=== PATIENT | male | born 1980 | race Caucasian/White ===

== ENCOUNTER 2016-10-30 18:46 | Emergency (ER) | payer MEDICAID, OTHER ==
--- NOTE | 2016-10-30 19:39 | RAD ---
INDICATION: Intracranial injury. COMPARISON: None TECHNIQUE: Noncontrast axial source images were acquired from the skull base to the vertex. FINDINGS: Ventricles/sulci: The ventricles and cisterns are normal in size and configuration for age. Brain parenchyma: There is no focal parenchymal finding, evidence of intracranial mass, or intracranial mass effect. Intracranial hemorrhage:None. Extra-axial spaces: There are no abnormal extra axial fluid collections or evidence of extra-axial mass. Calvarium: There is no calvarial fracture or other calvarial abnormality. Scalp: There is no evidence of scalp or extracalvarial soft tissue abnormality. Paranasal sinuses/mastoid: The paranasal sinuses and mastoid air cells are clear. Other: None. IMPRESSION: NEGATIVE EXAMINATION
--- NOTE | 2016-10-30 19:43 | RAD ---
INDICATION: Fall. Pain. COMPARISON: CT cervical spine 09/22/2016 TECHNIQUE: Noncontrast axial source images was performed from the skull base to the thoracic inlet. Coronal and and sagittal reformatted images were generated. FINDINGS: Vertebrae: There is no fracture or acute focal bony lesion. There are no significant osteoarthritic changes. Alignment: The craniocervical junction appears normal. There is cervical spine straightening with reversal normal cervical lordosis, unchanged. Central Canal: There are no significant CT abnormalities of the central canal or foramina. MR imaging is a more sensitive method to evaluate the canal and foramina. Intervertebral disc spaces: The disc spaces are maintained. Brain: The visualized brain appears unremarkable. Soft tissues: The visualized soft tissue elements of the neck are unremarkable. The prevertebral soft tissues appear normal. The lung apices are clear. Other: There is a small right mastoid air cell effusion, unchanged. IMPRESSION: CERVICAL SPINE STRAIGHTENING. NO ACUTE OSSEOUS INJURY.
[2016-10-30] MEDS ORDERED: Ketorolac INJ* 60 MG/2 ML VIAL IM ONE (20:13)
--- NOTE | 2016-10-30 20:56 | ED ---
Minesh King Erika, scribed for Lee Milton MD on 10/30/16 at 1915 . Head Injury - HPI Summary HPI Summary: Patient is a 36-year-old male presenting to the ED with a CC of headache s/p head injury around 18:00 today. Pt reports that he was walking his dog when he slipped on ice, and hit his right occiput on a rail, and also hit his right posterior shoulder and the right side of his back. He now notes a throbbing headache, dizziness as if the room is spinning, fatigue, photophobia, and nausea. He denies vomiting. PMHx diabetes, well-controlled epilepsy, hyperlipidemia, Marfan's syndrome, bipolar disorder, PTSD, schizophrenia. PSHx bilateral foot and ankle surgery, deviated septum. Pt denies using drugs, alcohol, or tobacco. - History Of Current Complaint Chief Complaint: EDHeadInjury Stated Complaint: FALL/HEAD INJURY Time Seen by Provider: 10/30/16 18:57 Hx Obtained From: Patient, Family/Plow Holder - Mechanism Of Injury: Fall From A Standing Position Onset/Duration: Started Hours Ago - about 1 hour, Traumatic, Still Present Onset of Pain: Post Accident Severity Currently: Moderate Pain Intensity: 8 Pain Scale Used: 0-10 Numeric Location of Head Injury: Occipital - right Character: Throbbing Aggravating Factor(s): Other: - lights Associated Signs And Symptoms: Nausea, Headache - Allergies/Home Medications Allergies/Adverse Reactions: Allergies Allergy/AdvReac Type Severity Reaction Status Date / Time No Known Allergies Allergy Verified 09/22/16 14:22 PMH/Surg Hx/FS Hx/Imm Hx Endocrine/Hematology History: Reports: Hx Diabetes, Hx Thyroid Disease - HYPER Cardiovascular History: Reports: Hx Hypercholesterolemia, Hx Hypertension, Other Cardiovascular Problems/Disorders - 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 Sinus Surgery. Righ and Left foot surgery - reconstruction surgery. Tubes as a child Infectious Disease History: No Infectious Disease History: Denies: History Other Infectious Disease, Traveled Outside the [place] in Last 30 Days - Family History Known Family History: Positive: Hypertension Family History: no others in family with Marfan Syndrome - Social History Lives: With Family Alcohol Use: Occasionally Alcohol Amount: 1 shot or 2 Hx Substance Use: No Substance Use Type: Reports: None Hx Tobacco Use: No Smoking Status (MU): Never Smoked Tobacco Have You Smoked in the Last Year: No Review of Systems Positive: Fatigue Positive: Photophobia Positive: Nausea. Negative: Vomiting Neurological: Other - dizziness Positive: Headache All Other Systems Reviewed And Are Negative: Yes Physical Exam - Summary Physical Exam Summary: VITAL SIGNS: Reviewed. GENERAL: Patient is a well developed and nourished male who is lying comfortable in the stretcher. Patient is not in any acute respiratory distress. HEAD AND FACE: No signs of trauma. No ecchymosis, hematomas or skull depressions. No sinus tenderness. EYES: PERRLA, EOMI x 2, No injected conjunctiva, no nystagmus. No photophobia. EARS: Hearing grossly intact. Ear canals and tympanic membranes are within normal limits. MOUTH: Oropharynx within normal limits. NECK: Supple, trachea is midline, no adenopathy, no JVD, no carotid bruit, no c- spine tenderness, neck with full ROM. No meningeal signs, no Kernig's or brudzinskis signs. CHEST: Symmetric, no tenderness at palpation LUNGS: Clear to auscultation bilaterally. No wheezing or crackles. CVS: Regular rate and rhythm, S1 and S2 present, no murmurs or gallops appreciated. ABDOMEN: Soft, non-tender. No signs of distention. No rebound no guarding, and no masses palpated. Bowel sounds are normal. EXTREMITIES: FROM in all major joints, no edema, no cyanosis or clubbing. NEURO: Alert and oriented x 3. No acute neurological deficits. Speech is normal and follows commands. SKIN: Dry and warm Triage Information Reviewed: Yes Vital Signs On Initial Exam: Initial Vitals Temp Pulse Resp BP Pulse Ox 96.8 F 92 18 138/91 98 10/30/16 18:52 10/30/16 18:52 10/30/16 18:52 10/30/16 18:52 10/30/16 18:52 Vital Signs Reviewed: Yes Diagnostics - Vital Signs Vital Signs Temp Pulse Resp BP Pulse Ox 10/30/16 18:52 96.8 F 92 18 138/91 98 - Laboratory Lab Statement: Any lab studies that have been ordered have been reviewed, and results considered in the medical decision making process. - CT C Spine CT CT Interpretation Completed By: Radiologist - IMPRESSION: CERVICAL SPINE STRAIGHTENING. NO ACUTE OSSEOUS INJURY. Brain CT CT Interpretation Completed By: Radiologist - IMPRESSION: NEGATIVE EXAMINATION Re-Evaluation - Re-Evaluation First Eval Re-Evaluation Time: 20:53 Change: Improved Comment: Discussed imaging results and plan for discharge Head Injury Course/Dx Assessment/Plan: Patient is a 36-year-old male presenting to the ED with a CC of headache s/p head injury around 18:00 today. Pt reports that he was walking his dog when he slipped on ice, and hit his right occiput on a rail, and also hit his right posterior shoulder and the right side of his back. He now notes a throbbing headache, dizziness as if the room is spinning, fatigue, photophobia, and nausea. He denies vomiting. PMHx diabetes, well-controlled epilepsy, hyperlipidemia, Marfan's syndrome, bipolar disorder, PTSD, schizophrenia. Head CT impression: No acute osseous injury. C spine CT impression: Negative examination. I discussed all my findings and test results with the patient. Patient understands and agrees. Patient was instructed to return to the emergency room immediately if any of the symptoms return or worsens. Patient understands and agrees. Plan of care was discussed with the patient and patient understands and agrees with the plan of care. All questions were answered at patient satisfaction. There were no further complaints or concerns. Patient was instructed to follow up with primary care physician within 3 to 5 days. Patient is hemodynamically stable. Patient is alert and oriented x 3. No acute neurological deficits. - Diagnoses Differential Diagnosis/HQI/PQRI: Cerebral Contusion, Cervical Sprain, Contusion , Hematoma Provider Diagnoses: Headache, Scalp contusion Discharge - Discharge Plan Condition: Stable Disposition: HOME Patient Education Materials: Contusion in Adults (ED) Referrals: [facility] [place] [facility] [Outside] Additional Instructions: Please follow up with your PCP The documentation as recorded by the Minesh escobar Erika accurately reflects the service I personally performed and the decisions made by me, Lee Milton MD.
[2016-10-30 21:02] VITALS: BP 147/94
== END 2016-10-30 21:01 | disposition home or self-care (01) ==
LOC: ED 18:46
DX: S00.03XA Contusion of scalp, initial encounter (principal); R51 Headache; W01.0XXA Fall on same level from slipping, tripping and stumbling without subsequent striking against object, initial encounter; Y93.K1 Activity, walking an animal; Y92.9 Unspecified place or not applicable; E11.9 Type 2 diabetes mellitus without complications; G40.909 Epilepsy, unspecified, not intractable, without status epilepticus; E78.5 Hyperlipidemia, unspecified; Q87.40 Marfan syndrome, unspecified; F31.9 Bipolar disorder, unspecified; F43.10 Post-traumatic stress disorder, unspecified; F20.9 Schizophrenia, unspecified; E05.90 Thyrotoxicosis, unspecified without thyrotoxic crisis or storm; E78.00 Pure hypercholesterolemia, unspecified; I10 Essential (primary) hypertension
CPT/HCPCS: 70450; 72125; 99282; J1885

== ENCOUNTER 2016-11-17 17:25 | Emergency (ER) | payer MEDICAID ==
[2016-11-17] MEDS ORDERED: Amoxicillin/Clavulanate TAB* 875 MG PO ONE (18:37)
[2016-11-17 18:38] VITALS: BP 127/78
--- NOTE | 2016-11-17 18:40 | UC ---
Bite Injury/Animal HPI - HPI Summary HPI Summary: While breaking up dog fight, was bit in R hand by own dog. Pain, deformity of R thumb. Says he is "double-jointed because I have Marfan's" but that his thumb is not usually bent backwards. Tetanus is UTD, within last 5 yrs. - History of Current Complaint Stated Complaint: DOG BITE Time Seen by Provider: 11/17/16 18:19 Hx Obtained From: Patient Severity Currently: Mild Severity Initially: Moderate Onset/Duration: Sudden Onset Type of Bite: Animal Has Animal Been Immunized?: Unknown Character: Puncture Aggravating Factor(s): Nothing Alleviating Factor(s): Rest Associated Signs And Symptoms: Positive: Swelling Animal Available for Observation: Yes Animal Control Notified: Yes - Allergies/Home Medications Allergies/Adverse Reactions: Allergies Allergy/AdvReac Type Severity Reaction Status Date / Time No Known Allergies Allergy Verified 09/22/16 14:22 Home Medications: Home Medications Hydrocodone-Acetaminophen [Vicodin 5-300 mg] 11/17/16 [History] PMH/Surg Hx/FS Hx/Imm Hx Endocrine History Of: Reports: Diabetes, Thyroid Disease - HYPER Cardiovascular History Of: Reports: Cardiac Disorders - enlarged Aorta, Hypertension Psychological History Of: Reports: Bipolar Disorder, Schizophrenia - Surgical History Surgical History: Yes Surgery Procedure, Year, and Place: Nasal surgery - deviated septum. Sinus Surgery. Righ and Left foot surgery - reconstruction surgery. Tubes as a child - Family History Known Family History: Positive: Hypertension, Other - no others in family with Marfan Syndrome Family History: no others in family with Marfan Syndrome - Social History Occupation: Disabled Alcohol Use: Occasionally Alcohol Amount: 1 shot or 2 Substance Use Type: None Smoking Status (MU): Never Smoked Tobacco Have You Smoked in the Last Year: No - Immunization History Most Recent Influenza Vaccination: [id number] season Most Recent Tetanus Shot: UTD Hx Tetanus, Diphtheria Vaccination: Yes Vaccination Up to Date: No Review of Systems Constitutional: Negative Skin: Other - PWs Eyes: Negative ENT: Negative Respiratory: Negative Cardiovascular: Negative Gastrointestinal: Negative Genitourinary: Negative Motor: Negative Neurovascular: Negative Musculoskeletal: Arthralgia Neurological: Negative Psychological: Negative All Other Systems Reviewed And Are Negative: Yes Physical Exam Triage Information Reviewed: Yes Appearance: Well-Appearing, No Pain Distress, Well-Nourished Vital Signs Reviewed: Yes Eye Exam: Normal - pupils constricted, pt takes opiates for chronic pain ENT Exam: Normal ENT: Positive: Normal ENT inspection, Hearing grossly normal, Pharynx normal, TMs normal Dental Exam: Normal Dental: Negative: Dental Fracture @ Neck exam: Normal Respiratory Exam: Normal Respiratory: Positive: Chest non-tender, Lungs clear, Normal breath sounds, No respiratory distress, No accessory muscle use Cardiovascular Exam: Normal Cardiovascular: Positive: RRR Musculoskeletal: Positive: ROM Limited @ - R thumb, unwilling to move it. Hyperextended Neurological Exam: Normal Psychological Exam: Normal Skin Exam: Normal Bite Injury Course/Dx - Differential Dx/Diagnosis Provider Diagnoses: Dog bite R thumb. crush injury R thumb Discharge - Discharge Plan Condition: Stable Disposition: HOME Prescriptions: Amoxicillin/Clavulanate TAB* [Augmentin TAB 875*] 875 mg PO BID #9 tab Patient Education Materials: Animal Bite (ED), Crush Injury (ED) Referrals: Ned Delgado MD [Medical Doctor] - If Needed Additional Instructions: Keep the injury elevated as much as possible for the next 48 hours. You can wash the wounds whenever you wash your hands or shower/bathe. If you have sudden increase in redness or red streaks from the wounds please return right away. See the orthopedist if you are not using the hand normally within 2-3 days.
[2016-11-17] MEDS ORDERED: Ibuprofen TAB* 600 MG PO ONE (18:59)
--- NOTE | 2016-11-17 19:12 | RAD ---
INDICATION: Right thumb injury, dog bite. TECHNIQUE: 3 views of the right thumb were obtained. FINDINGS: The thumb is extended at the metacarpal phalangeal joint and flexed at the interphalangeal joint. There is soft tissue swelling present adjacent to the dorsal and lateral aspect of the metacarpal. No fracture or radiopaque foreign body is seen. Joint spaces appear maintained. IMPRESSION: NO EVIDENCE FOR FRACTURE OR RADIOPAQUE FOREIGN BODY.
== END 2016-11-17 19:10 | disposition home or self-care (01) ==
LOC: UCEAST 17:25
DX: S61.031A Puncture wound without foreign body of right thumb without damage to nail, initial encounter (principal); S67.01XA Crushing injury of right thumb, initial encounter; W54.0XXA Bitten by dog, initial encounter; Y93.9 Activity, unspecified; Y92.9 Unspecified place or not applicable
CPT/HCPCS: 99212; A9270-GY; G0463

== ENCOUNTER 2017-02-26 06:05 | Inpatient (IN) | payer MEDICAID ==
[2017-02-26] MEDS ORDERED: Aspirin Low Dose CHEW TAB* 81 MG ONE (06:54)
[2017-02-26] MEDS ORDERED: Aspirin EC Low Dose* 81 MG TAB.EC PO ONE (06:58)
[2017-02-26] MEDS ORDERED: Heparin DRIP 25,000 UNITS(*) 25,000 UNITS/500 ML BAG IV SCH ×2 (07:15→08:00)
[2017-02-26 07:58] LABS: Hematocrit 40 % (42-52); Hemoglobin 13.2 g/dl (14.0-18.0); Mean Corpuscular HGB Conc 33 g/dl (31-36); Mean Corpuscular Hemoglobin 29 pg (27-31); Mean Corpuscular Volume 86 fL (80-94); Mean Platelet Volume 7 um3 (7.4-10.4); Red Blood Count 4.62 10^6/ul (4.0-5.4); Red Cell Distribution Width 14 % (10.5-15); White Blood Count 9.3 10^3/ul (3.5-10.8)
[2017-02-26] MEDS ORDERED: Heparin VIAL(*) 5000 UNITS/ML VIAL (FIVE THOUSAND) IV SCH (08:00)
--- NOTE | 2017-02-26 08:05 | RAD ---
INDICATION: Chest pain. COMPARISON: There are no prior studies available for comparison. TECHNIQUE: A portable view of the chest was obtained. FINDINGS: Cardiac and mediastinal contours appear to be within normal limits. The lungs are clear. No pleural effusion is seen. IMPRESSION: NO EVIDENCE FOR ACUTE DISEASE.
[2017-02-26 08:24] LABS: Albumin 4.3 g/dL (3.2-5.2); BUN/Creatinine Ratio 25.4 (8-20); Calcium 8.9 mg/dL (8.6-10.3); EGFR African American 160.5 (>60); EGFR Non-African American 124.8 (>60); Globulin 2.7 g/dL (2-4); Potassium 4.3 mmol/L (3.5-5.0); Total Bilirubin 0.4 mg/dL (0.2-1.0)
[2017-02-26 09:02] LABS: Troponin I 11.64 ng/mL (<0.04)
--- NOTE | 2017-02-26 09:21 | ECHO ---
Patient: THERESA BARTHOLOMEW [facility] Rec#: [id number] : 1980 Date: 02/26/2017 Age: 36y Height: 190.5 cm / 75.0 in Weight: 93 kg / 205.0 lbs Sex: M BSA: 2.22 Room#: ICU 9 Admit Date#: 02/26/2017 Type: Inpatient Referring: Julius Mancilla MD Reading: Julius Mancilla MD Lawyers: Janny Peraza RN RDCS CC: Marshall Razo MD Transthoracic Echocardiogram Indication: STEMI BP: 125/84 HR: 62 Rhythm: NSR with PVCs Findings History: Marfan's syndrome with dilated ascending aorta Technical Comments: The study is technically limited due to patient body habitus. Completed at 0855. Left Ventricle: The left ventricular chamber size is mildly dilated. Mild to moderate concentric left ventricular hypertrophy is observed. There is a focal wall motion abnormality present.There is severe hypo to akinesis of the inferior , mid to low septal,and inferoapical region. There is moderately decreased left ventricular systolic function. The estimated ejection fraction is 30-35%. Visually estimated LVEF is approximately 35%. There is an E to A reversal in the mitral valve flow pattern suggestive of diastolic dysfunction. Left Atrium: The left atrial chamber size is normal. Right Ventricle: The right ventricular cavity size is normal. The right ventricular global systolic function is low normal. Right Atrium: The right atrial cavity size is normal. Aortic Valve: The aortic valve is trileaflet. There is mild aortic regurgitation. There is no evidence of aortic stenosis. Mitral Valve: The mitral valve leaflets are mildly thickened. There is trace to mild mitral regurgitation. There is no evidence of mitral stenosis. Tricuspid Valve: The tricuspid valve leaflets are normal. There is trace to mild tricuspid regurgitation. There is evidence of mild pulmonary hypertension. Pulmonic Valve: The pulmonic valve appears normal. There is a trace pulmonic regurgitation. There is no pulmonic stenosis. Pericardium: There is no significant pericardial effusion. A pericardial fat pad is visualized. Aorta: There is moderate dilatation of the ascending aorta.Single plane measurement is 4.6cm There is no dilatation of the aortic arch. There is moderate dilatation of the aortic root.Single plane measurement is 4.8-4.9cm Pulmonary Artery: The main pulmonary artery appears normal. Venous: The venous system is not well visualized. The inferior vena cava is not visualized. Conclusions Mild to moderate concentric left ventricular hypertrophy is observed. There is a focal wall motion abnormality present.There is severe hypo to akinesis of the inferior , mid to low septal,and inferoapical region. There is moderately decreased left ventricular systolic function. The estimated ejection fraction is 30-35%. Visually estimated LVEF is approximately 35%. There is mild aortic regurgitation. There is trace to mild mitral regurgitation. There is trace to mild tricuspid regurgitation. There is evidence of mild pulmonary hypertension. There is a trace pulmonic regurgitation. There is moderate dilatation of the ascending aorta.Single plane measurement is 4.6cm There is moderate dilatation of the aortic root.Single plane measurement is 4.8-4.9cm No reports of prior studies are available for comparison. Measurements Name Value Normal Range RVDdMajor (2D) 3.8 cm (2.2 - 4.4) RAd ISD 4CH 4.2 cm (3.4 - 4.9) RA (A4C)W 3.7 cm (2.9 - 4.6) IVSd (2D) 1.3 cm (0.6 - 1) LVPWd (2D) 1.1 cm (0.6 - 1) LVIDd (2D) 5.6 cm (3.6 - 5.4) LVIDs (2D) 4.5 cm - LV FS (2D) 19 % (25 - 45) Aortic Annulus 2.6 cm (1.4 - 2.6) Ao root diameter (2D) 4.5 cm (2.1 - 3.5) Ascending Ao 4.6 cm (2.1 - 3.4) Aortic arch 2.5 cm (1.8 - 3.4) LA dimension (AP) 2D 3.6 cm (2.3 - 3.8) LAd ISD 4CH 4.8 cm (2.9 - 5.3) LA ISD 4CH W 3.9 cm (2.5 - 4.5) Name Value Normal Range LA ESV SP 4CH (A/L) 36 ml - LA ESV SP 2CH (A/L) 42 ml - LA ESV BP (A/L) 42 ml - LA ESV BP (A/L) index 18.8 ml/m2 - LA ESV SP 4CH (MOD) 33 ml - LA ESV SP 2CH (MOD) 40 ml - Name Value Normal Range MV E-wave Vmax 0.57 m/sec - MV deceleration time 224 msec - MV A-wave Vmax 0.74 m/sec - MV E:A ratio 0.77 ratio - LV septal e' Vmax 0.06 m/sec - LV lateral e' Vmax 0.07 m/sec - LV E:e' septal ratio 9.5 ratio - LV E:e' lateral ratio 8.1 ratio - Name Value Normal Range AV Vmax 1 m/sec - AV VTI 25.7 cm - AV peak gradient 4 mmHg - AV mean gradient 2 mmHg - LVOT Vmax 0.8 m/sec - LVOT VTI 19 cm - LVOT peak gradient 4 mmHg - LVOT mean gradient 2 mmHg - MARQUES Vmax 0.9 m/sec - Name Value Normal Range TR Vmax 2.7 m/sec - TR peak gradient 29 mmHg - RAP 8 mmHg - RVSP 37 mmHg - Name Value Normal Range PV Vmax 0.79 m/sec -
[2017-02-26] MEDS ORDERED: Heparin VIAL(*) 5000 UNITS/ML VIAL (FIVE THOUSAND) ONE (09:50)
[2017-02-26] MEDS ORDERED: Metoprolol Succinate XL TAB* 25 MG PO ONE ×2 (10:12→11:20)
[2017-02-26] MEDS ORDERED: Dextrose 50% Syringe 50 ML* 25 GM/50 ML SYRINGE IV PUSH PRN (10:13)
[2017-02-26] MEDS ORDERED: NS 0.9% 1000 ML* 1,000 ML IV SCH (10:15)
[2017-02-26] MEDS ORDERED: Amiodarone 360 MG IVPREMIX* 360 MG/200 ML BAG IV ONE (11:55)
[2017-02-26] MEDS ORDERED: Amiodarone 150 MG IVPREMIX* 150 MG/100 ML BAG IV ONE (11:55)
[2017-02-26] MEDS ORDERED: Insulin LISPRO* 1 UNITS UNIT SUBCUT SCH (12:00)
[2017-02-26] MEDS ORDERED: Amiodarone DRIP* 1.8 MG/ML 200 ML IV ONE (12:30)
[2017-02-26 13:12] VITALS: BP 118/67
[2017-02-26 14:01] LABS: Magnesium 1.7 mg/dL (1.9-2.7)
--- NOTE | 2017-02-26 14:01 | HP ---
ADMISSION/TRANSFER NOTE: DATE OF ADMISSION/DICTATION: 02/26/17 CHIEF COMPLAINT: The patient with chest discomfort and acute ST segment elevation inferior wall myocardial infarction. HISTORY OF PRESENT ILLNESS: The patient is a 36-year-old white male with no prior known history of coronary artery disease. He has a history dating back when he was 15 years old of having a dilated ascending aorta and he was told he has Marfan's syndrome. Last night, he developed the onset of chest discomfort, initially sharp in nature at the left side of the chest radiating up to his shoulder followed by numbness in the left arm. He had coughing and he was nauseous and vomited at least once. The symptoms persisted and he eventually sought medical attention by driving to the [facility] Emergency Room. In the emergency room, an electrocardiogram documented the presence of an ST segment elevation inferior wall myocardial infarction. Because of his history of the dilated ascending aorta, a CTA was performed there of the chest to look for dissection. This was reported as negative for any type of thoracic aortic dissection. With that, the emergency room physician had discussed the case with Dr. Serna, talent rep at [facility]. According to the emergency room doctor, he instructed the doctor to give the patient TNK as a thrombolytic agent and have the patient sent to [facility]. The patient received a TNK and a discussion was made about going to [facility]. At that point in time, the family and the patient refused to go to [facility] and said they would go nowhere but [facility]. It was at that point that I was then called. That was at 4:34 a.m. this morning. I discussed the case with the emergency room physician and accepted the patient to be transferred over. The patient had not received any heparin and I instructed them to start heparin on the patient and also give clopidogrel 300 mg loading dose. The patient was subsequently transferred over to the emergency room. When he arrived, I then realized that the patient had not gotten aspirin over there as well and as such, we gave him a full dose aspirin. The patient's symptoms were significantly diminished and he appeared in no acute distress and a repeat EKG documented no significant ST segment elevation inferiorly rather T-wave inversion and Q-wave development inferiorly with T- wave inversion in the anterior leads. As such, he was initially admitted up to the intensive care unit. We looked at the CD of the CT of the chest which reportedly documented a 5.3 x 4.8 mm distended aortic root. Unfortunately, the CD that was sent with the patient was of a different patient in the emergency room and not even a CTA. We called [facility] and asked them to resend another one so that we could see the documentation of this in addition to the report. The patient was stable hemodynamically and admitted initially to the intensive care unit. Heparin therapy was continued with a drip placed at 1000 units per hour and a CT was checked and found to be subtherapeutic for guideline range of 50 to 70 at 47 and as such, he was bolused with a 1000 mg and the drip was increased to 1200 units an hour. The patient received in the intensive care unit 12.5 mg of metoprolol succinate. The patient normally takes 25 mg daily. An echocardiogram was subsequently performed showing severe inferior septal and inferior apical hypo to akinesis with an EF approximately 35%. There was trace to mild mitral regurgitation. There was mild aortic regurgitation. The aortic root was measured at 4.8 cm in the single plane parasternal long axis view. The ascending aorta was measured at 4.6 cm in this view. The right ventricle appeared to be functioning normally with no severe dysfunction. A discussion was then had with first Dr. Barber regarding the ascending aortic dilatation and at this point, he felt that if anything, treatment of the coronary artery disease first should be proceeded with. I then discussed the case with the talent rep at [facility] given the fact that the patient had the significant dilatation of the aortic root with a reported Marfan's etiology of this and the potential need for stabilizing the patient over the next several days with potential combined aortic root and coronary artery disease surgery versus intervening with stent placement and trying to buy as much time as possible even though current criteria suggests that the aortic root should be replaced. With these decisions to made, the decision was made to transfer the patient so that the surgical program could also meet with the patient as well and go over all of these potential options. As such, the patient is now being transferred to [facility], Dr. Haddad, interventional cardiology service. PAST MEDICAL HISTORY: Significant for hypertension, type 2 diabetes, Marfan's disease, hyperlipidemia, as well as a psychiatric history. The patient also has tremors. 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 Cardiac risk factors include hypertension, hyperlipidemia, Type II DM, family history of brother with early onset CAD, denies smokling. ALLERGIES: No known drug allergies. FAMILY HISTORY: Brother who apparently had multiple heart attacks in his 40s, type 2 diabetes, but a negative history of smoking. REVIEW OF SYSTEMS: No history of bleeding or TIAs or strokes. No history of renal dysfunction, no history of contrast allergy that he is aware of. PHYSICAL EXAMINATION VITAL SIGNS: When we saw him in the emergency room, blood pressure 125/89, pulse 70s, O2 saturation 98% on 3 L. HEENT: Conjunctivae pink. Sclerae clear. NECK: Supple. No increased JVP. Carotid with good upstroke and volume without bruits. LUNGS: Revealed no accessory muscle usage. There is good excursion. Lungs relatively clear to A and P. HEART: Revealed no visible heaves. No palpable heaves or thrills. Normal S1 and S2. No S3 or S4 gallop. There is a short systolic murmur. I do not appreciate a significant diastolic murmur. ABDOMEN: Soft, nontender without organomegaly. EXTREMITIES: Without clubbing, cyanosis or dmitry pitting edema. The femoral pulses present bilaterally. There is no decreased pulse in the femoral or distal pulses. There is no delay compared to the wrist pulse bilaterally. DIAGNOSTIC STUDIES/LAB DATA: Repeat electrocardiogram dated 02/26/17, time 6: 08 a.m. at [facility] showed no significant ST elevation in II, III, aVF with T-wave inversion and noticeably his Q-wave in III and also in aVF, T- wave inversion noted biphasic in V2 and inverted in V3, V4 and V5 and V6. R- waves are still present in those leads. There is poor R-wave in aVF and small R wave in 3 and small R-wave in lead 2. Laboratory results that came back since admission including hemoglobin and hematocrit of 13.2 and 40, platelet count was 293,000. The BUN and creatinine were 18 and 0.7, sodium 129, potassium 4.3, chloride 96, bicarb 24. Laboratory results from [facility] revealed a BUN and creatinine of 24 and 0.9. Sodium 134, potassium of 3.9, chloride 97, bicarb 26. The initial CK was 112, the troponin was less than 0.015. New laboratory results at [facility] included SGOT of 94, SGPT of 55 , total CPK of 953 and an MB 169, a troponin of 11.6. These values were drawn some 5 hours after the initial samples from [facility]. OVERALL ASSESSMENT: Lavelle presents now with an interrupted ST elevation inferior wall myocardial infarction by thrombolytic therapy, currently on heparin and had received a loading dose of clopidogrel 300 mg. He has gotten beta-karen therapy with a total of 25 mg of metoprolol succinate which he is on chronically. He did get full dose aspirin today. At this point in time, we will transfer him to [facility] so that a decision could be made between the concept of cathing and performing either stenting and electively trying to buy him as much time as possible even though theoretically he meets guideline criteria for intervening in his thoracic aorta and aortic root versus cardiac catheterization and trying to stabilize him over the next 4 or 5 days to allow clopidogrel to wear off and if LV function improves, significantly consider doing combined bypass and ascending aortic replacement. As mentioned earlier, discussions were made with both Dr. Haddad, the interventionalist who is the accepting physician and with Dr. Raffy Barber who is aware of the case. CC - Dr. Marshall Razo MD* [id number]/[facility] #: [id number] Addendum - of note prior to discharge he developed ventricular ectopic activity , with as much as a 14 beat run of V-tach for which amiodarone was instituted. A repeat EKG showed no significant change from prior one with Q waves inferiorly and T wave inversions inferiorly and anteriorly. He had no significant symptoms. [facility]
--- NOTE | 2017-02-26 18:41 | CONS ---
CONSULTATION REPORT: DATE OF CONSULT: 02/26/17 PHYSICIAN REQUESTING CONSULT: Dr. Mancilla from Cardiology. PRIMARY CARE PHYSICIAN: Dr. Marshall Razo CHIEF COMPLAINT: Chest pain. HISTORY OF PRESENT ILLNESS: Lavelle Casey is a 36-year-old male with history of learning disability, Marfan syndrome as well as diabetes, and schizophrenia, who presented originally to [facility] complaining of chest pain. The chest pain was substernal occurred at 9 p.m. and had lasted most of the night. The patient initially was treated with TNK by the physician in the [facility] ED and subsequently transferred to our facility for further intervention. The patient was diagnosed with inferior wall ST elevation MA. The patient is right now being evaluated in room 9 in the ICU. The patient has a history of diabetes, schizophrenia and seizure disorder and for those above- mentioned conditions, Dr. Mancilla asked the Medicine to consult. PAST MEDICAL HISTORY: 1. Diabetes type 2. 2. History of seizure disorder. 3. History of Marfan syndrome. 4. Schizophrenia. 5. History of PTSD. 6. History of bipolar disorder. 7. History of thoracic aortic aneurysm. Documented stay with measurements of 5.3 x 4.8 cm of the thoracic aorta. 8. History of learning disability. 9. History of left ear tympanic membrane perforation and hearing deficit on the left ear. 10. Please note that the patient has bilateral foot surgeries and ORIF. MEDICATIONS: Include: 1. Lamictal 25 mg b.i.d. 2. Gemfibrozil 600 mg b.i.d. 3. Toprol XL 25 mg daily. 4. Abilify injections every month at 400 mg. 5. Meloxicam 7.5 mg p.r.n. 6. Mirtazapine 45 mg q.h.s. 7. Metformin 500 mg b.i.d. ALLERGIES: No known drug allergies. FAMILY HISTORY: Positive for father who at the age of 50 secondary to MA. The patient's mother with Graves disease. SOCIAL HISTORY: The patient is on disability. He occasionally has a "shot of vodka." The patient denies any drug or tobacco use. He lives with his significant other, Bisi Sutton, phone number [phone]. Another surrogate is his mother, Gina Painter, phone number [phone]. REVIEW OF SYSTEMS: Please see history of present illness. The patient stated that his chest pain just right now is beginning to resolve. He never had shortness of breath. He localizes the chest pain in the substernal area and describes it as pressure. All the remaining 14 systems were reviewed with the patient, and otherwise negative. PHYSICAL EXAM: Blood pressure of 117/78, heart rate of 72 and regular. Respiratory rate of 18, oxygen saturation 99% on room air, temperature of 97.7. General: The patient is a very pleasant 36-year-old male who is in no acute distress. Alert, awake, and oriented x3. HEENT: Head is atraumatic and normocephalic. Eyes: Pupils equal and reactive to light and accommodation. Oropharynx clear. Mucosa moist. Neck: Supple. No JVD, no bruits bilaterally. Cardiovascular: Regular rate and rhythm. No murmurs. Respiratory : Clear to auscultation bilaterally. Abdomen: Soft and nontender. Bowel sounds are present in all 4 quadrants. Extremities: There is no edema. +2 pulses bilaterally. No clubbing or cyanosis. Neuro evaluation: Speech is clear. Cranial nerves II through XII grossly intact. Motor strength is 5/5 bilaterally. Psychiatric Evaluation: Oriented x3 with no evidence of anxiety or depression. Rather poor historian. DIAGNOSTIC STUDIES/LAB DATA: Shows sodium of 129, potassium of 4.3, chloride of 96, carbon dioxide of 24, BUN of 18, creatinine of 0.7. Liver function tests showed AST of 94, ALT of 55, alkaline phosphatase of 40. Total CPK of 953. CK-MB of 169. Troponin of 11.6. White blood cell count of 9.3, hemoglobin of 13.2, hematocrit of 40 and platelets of 293. The patient's most recent echocardiogram obtained at 11:56 a.m., showed deep negative T wave in leads II, III and aVF, as well as deep negative T waves in leads V1 to V6. Previously described ST elevations in lead II, III and aVF resolved. ASSESSMENT AND PLAN: A 36-year-old male who has ST elevation myocardial infarction, was treated with TNK and transferred to our hospital for further interventions. The patient was noted to have 5.3 x 4.[address] on [address] angiogram obtained at [facility]. At this point, as per Dr. Mancilla, the patient is treated with heparin drip. The patient also received a dose of Plavix and aspirin. In regards to the patient's history of schizophrenia, the patient's antidepressants and antipsychotics are going to be continued as previously taken. In regards to the patient's diabetes, the patient is going to be placed on insulin sliding scale and his metformin is going to be held. For his hypertension, Dr. Mancilla is ordering right now one dose of beta- karen. We will ask Dr. Mancilla to manage it further. In regards to hyperlipidemia, gemfibrozil is going to be continued as previously taken. For DVT prophylaxis, the patient is currently on heparin drip. Thank you very much for allowing me to see your patient in consultation. Medicine will follow on a daily basis. TIME SPENT: Approximately 68 minutes was spent on the patient's consult. CC: Dr. Mancilla; Dr. Marshall Razo * [id number]/[facility] #: [id number] MTDD
[2017-02-26] MEDS ORDERED: Mirtazapine TAB* 15 MG PO SCH (21:00)
[2017-02-26] MEDS ORDERED: Gemfibrozil TAB* 600 MG PO SCH (21:00)
[2017-02-26] MEDS ORDERED: lamoTRIgine TAB(*) 25 MG PO SCH (21:00)
== END 2017-02-26 13:35 | disposition short-term general hospital (02) | DRG 190 ==
LOC: ED 06:05 → ICU 06:36
PROVIDERS: ADMIT Internal Medicine Cardiovascular Disease; ATTEND Internal Medicine Cardiovascular Disease
DX: I21.19 ST elevation (STEMI) myocardial infarction involving other coronary artery of inferior wall (principal); I47.2 Ventricular tachycardia; Q87.410 Marfan syndrome with aortic dilation; E11.9 Type 2 diabetes mellitus without complications; F20.9 Schizophrenia, unspecified; I10 Essential (primary) hypertension; F81.9 Developmental disorder of scholastic skills, unspecified; G40.909 Epilepsy, unspecified, not intractable, without status epilepticus; Z79.84 Long term (current) use of oral hypoglycemic drugs; Z82.49 Family history of ischemic heart disease and other diseases of the circulatory system; Z83.3 Family history of diabetes mellitus; Z79.899 Other long term (current) drug therapy
CPT/HCPCS: 36415; 71010; 80053; 82550; 82553; 83735; 84484; 85025; 85730; 87641; 93005; 93306; A9270-GY; J0282; J1644

== ENCOUNTER 2017-05-05 10:58 | Emergency (ER) | payer OTHER ==
[2017-05-05 11:42] LABS: Hematocrit 42 % (42-52); Hemoglobin 13.6 g/dl (14.0-18.0); Mean Corpuscular HGB Conc 33 g/dl (31-36); Mean Corpuscular Hemoglobin 29 pg (27-31); Mean Corpuscular Volume 88 fL (80-94); Red Blood Count 4.78 10^6/ul (4.0-5.4); Red Cell Distribution Width 15 % (10.5-15)
[2017-05-05 11:44] LABS: Add Diff/Slide Review? Slide Review Added; Comments Flag Yes
[2017-05-05 11:48] LABS: ALT 46 U/L (7-52); Albumin 4.5 g/dL (3.2-5.2); Alkaline Phosphatase 52 U/L (34-104); BUN/Creatinine Ratio 22.4 (8-20); Blood Urea Nitrogen 15 mg/dL (6-24); CO2 Carbon Dioxide 20 mmol/L (22-32); Calcium 9.5 mg/dL (8.6-10.3); Chloride 101 mmol/L (101-111); Creatine Kinase 64 U/L (10-223); EGFR African American 171.7 (>60); EGFR Non-African American 133.5 (>60); Glucose 93 mg/dL (70-100); Sodium 130 mmol/L (133-145); Total Protein 7.5 g/dL (6.4-8.9)
[2017-05-05 11:51] LABS: Troponin I 0.01 ng/mL (<0.04)
--- NOTE | 2017-05-05 11:52 | RAD ---
INDICATION: Chest pain. COMPARISON: Comparison is made with a prior study from February 26, 2017. TECHNIQUE: Dual-energy PA and lateral views of the chest were obtained. FINDINGS: The patient appears to be status post coronary artery bypass surgery. The heart is within normal limits in size. The lungs are clear. No pleural effusion is present. IMPRESSION: POSTSURGICAL CHANGES, NO EVIDENCE FOR ACUTE FINDING.
[2017-05-05 12:20] LABS: TSH (Thyroid Stimulating Horm) 3.23 mcIU/mL (0.34-5.60)
[2017-05-05 12:49] LABS: White Blood Count 8.4 10^3/ul (3.5-10.8)
[2017-05-05 12:50] LABS: Mean Platelet Volume 8 um3 (7.4-10.4)
[2017-05-05 13:28] LABS: Anion Gap 9 mmol/L (2-11)
[2017-05-05] MEDS ORDERED: Iodixanol* (CONTRAST) 320 MG/ML 100 ML SDV IV ONE (13:48)
--- NOTE | 2017-05-05 14:42 | RAD ---
Indication: Shortness of breath chest pain. Contrast: Administered 82.0 ml of VISAPAQUE 320 mgi/ml CTA of the chest was performed after IV contrast administration. Coronal and sagittal reconstructed images were obtained. The pulmonary arterial tree is well opacified. There are no filling defects present to suggest pulmonary embolus. There is no mediastinal or hilar adenopathy noted. The heart demonstrates no evidence of pericardial effusion. The trachea and major bronchi appear patent. The lung epstein demonstrate no pleural fluid, nodules or masses. Some scarring is noted in the lingula. No alveolar consolidation is noted.. No alveolar consolidation is noted. Cardiomegaly is noted. The visualized abdominal organs are otherwise unremarkable. The aorta demonstrates no evidence of aortic dissection. IMPRESSION: No evidence of pulmonary embolus is noted. No evidence of aortic dissection or aneurysmal dilatation is present.
[2017-05-05 16:38] VITALS: BP 106/72
--- NOTE | 2017-05-05 20:13 | ED ---
Sarah King Edward, scribed for Lee Milton MD on 05/05/17 at 1115 . HPI Chest Pain - HPI Summary HPI Summary: 36 y/o male presents to ED c/o CP starting 2 hours ago. CP feels like "someone kicked him in the chest" rated at a 9.5/10 now. Associated sx: dizziness, numbness in arm, and SOB. The patient was relaxing while it started. No N/V, diaphoresis. PMHx Marfan's syndrome, DM, 2 LA, large aorta, HLD. SHx triple bypass surgery. - History of Current Complaint Chief Complaint: EDChestPainROMI Time Seen by Provider: 05/05/17 11:12 Hx Obtained From: Patient Timing: Lasting Hours - 2 hours Initial Severity: Severe Current Severity: Severe Pain Intensity: 9 Pain Scale Used: 0-10 Numeric Chest Pain Radiates To:: Arm - Numbness Character: Other: - "some one kicked me in the chest" Associated Signs and Symptoms: Positive: Chest Pain, Numbness - arm, Dizziness, Shortness of Breath. Negative: Diaphoresis, Nausea, Vomiting - Allergy/Home Medications Allergies/Adverse Reactions: Allergies Allergy/AdvReac Type Severity Reaction Status Date / Time No Known Allergies Allergy Verified 02/26/17 06:26 PMH/Surg Hx/FS Hx/Imm Hx Previously Healthy: No Endocrine/Hematology History: Reports: Hx Diabetes, Hx Thyroid Disease - HYPER, Other Endocrine/Hematological Disorders Cardiovascular History: Reports: Hx Hypercholesterolemia, Hx Hypertension, Other Cardiovascular Problems/Disorders - HYPERCHOLESTEROLEMIA/IDDM/MARFAN'S SYNDROME/ENLARGED AORTA Musculoskeletal History: Reports: Other Musculoskeletal History - Marfan's Syndrome Sensory History: Denies: Hx Contacts or Glasses, Hx Hearing Aid Opthamlomology History: Denies: Hx Contacts or Glasses Neurological History: Reports: Hx Seizures Psychiatric History: Reports: Hx Post Traumatic Stress Disorder, Hx Schizophrenia, Hx Bipolar Disorder - Surgical History Surgery Procedure, Year, and Place: Nasal surgery - deviated septum. Sinus Surgery. Righ and Left foot surgery - reconstruction surgery. Tubes as a child Infectious Disease History: Denies: History Other Infectious Disease, Traveled Outside the [place] in Last 30 Days - Family History Known Family History: Positive: Hypertension, Other - no others in family with Marfan Syndrome Family History: no others in family with Marfan Syndrome - Social History Alcohol Use: None Alcohol Amount: 1 shot or 2 Hx Substance Use: No Substance Use Type: Reports: None Hx Tobacco Use: No Smoking Status (MU): Never Smoked Tobacco Have You Smoked in the Last Year: No Review of Systems Constitutional: Negative Eyes: Negative ENT: Negative Positive: Chest Pain Positive: Shortness Of Breath Negative: Vomiting, Nausea Genitourinary: Negative Musculoskeletal: Negative Skin: Negative Neurological: Other - Dizziness Positive: Numbness - Arm Psychological: Normal All Other Systems Reviewed And Are Negative: Yes Physical Exam - Summary Physical Exam Summary: VITAL SIGNS:~Reviewed. GENERAL:~ Patient is a pale male who is lying comfortable in the stretcher.~ Patient is not in any acute respiratory distress. Pain is in no pain distress despite reporting 9.5/10 CP. HEAD AND FACE:~No signs of trauma.~ No ecchymosis, hematomas or skull depressions. No sinus tenderness. EYES:~PERRLA, EOMI x 2, No injected conjunctiva, no nystagmus. EARS:~Hearing grossly intact. Ear canals and tympanic membranes are within normal limits. MOUTH:~Oropharynx within normal limits. NECK:~Supple, trachea is midline, no adenopathy, no JVD, no carotid bruit, no c- spine tenderness, neck with full ROM. CHEST:~Symmetric, no tenderness at palpation. Well-healed surgical incision - clean, dry and intact. LUNGS:~Clear to auscultation bilaterally. No wheezing or crackles. CVS:~Regular rate and rhythm, S1 and S2 present, no gallops appreciated. Positive ejection systolic murmur 2/6. ABDOMEN:~Soft, non-tender. No signs of distention. No rebound no guarding, and no masses palpated. Bowel sounds are normal. EXTREMITIES:~FROM in all major joints, no edema, no cyanosis or clubbing. NEURO:~Alert and oriented x 3. No acute neurological deficits. Speech is normal and follows commands. SKIN:~Dry and warm Triage Information Reviewed: Yes Vital Signs On Initial Exam: Initial Vitals Temp Pulse Resp BP Pulse Ox 97.6 F 77 22 107/71 97 05/05/17 11:00 05/05/17 11:00 05/05/17 11:00 05/05/17 11:00 05/05/17 11:00 Vital Signs Reviewed: Yes Diagnostics - Vital Signs Vital Signs Temp Pulse Resp BP Pulse Ox 05/05/17 11:00 97.6 F 77 22 107/71 97 - Laboratory Lab Results: Lab Results 05/05/17 05/05/17 05/05/17 Range/Units 11:24 11:24 11:24 WBC 8.4 (3.5-10.8) 10^3/ul RBC 4.78 (4.0-5.4) 10^6/ul Hgb 13.6 L (14.0-18.0) g/dl Hct 42 (42-52) % MCV 88 (80-94) fL MCH 29 (27-31) pg MCHC 33 (31-36) g/dl RDW 15 (10.5-15) % Plt Count 339 (150-450) 10^3/ul MPV 8 (7.4-10.4) um3 Neut % (Auto) 46.6 (38-83) % Lymph % (Auto) 42.7 (25-47) % [place] % (Auto) 6.8 (1-9) % Eos % (Auto) 2.7 (0-6) % Baso % (Auto) 1.2 (0-2) % Absolute Neuts (auto) 3.9 (1.5-7.7) 10^3/ul Absolute Lymphs (auto) 3.6 (1.0-4.8) 10^3/ul Absolute Monos (auto) 0.6 (0-0.8) 10^3/ul Absolute Eos (auto) 0.2 (0-0.6) 10^3/ul Absolute Basos (auto) 0.1 (0-0.2) 10^3/ul Absolute Nucleated RBC 0 10^3/ul Nucleated RBC % 0 INR (Anticoag Therapy) 0.97 (0.89-1.11) APTT 32.0 (26.0-36.3) seconds Sodium 130 L (133-145) mmol/L Potassium TNP Chloride 101 (101-111) mmol/L Carbon Dioxide 20 L (22-32) mmol/L Anion Gap 9 (2-11) mmol/L BUN 15 (6-24) mg/dL Creatinine 0.67 (0.67-1.17) mg/dL Est GFR ( Amer) 171.7 (>60) Est GFR (Non-Af Amer) 133.5 (>60) BUN/Creatinine Ratio 22.4 H (8-20) Glucose 93 (70-100) mg/dL Lactic Acid (0.5-2.0) mmol/L Calcium 9.5 (8.6-10.3) mg/dL Magnesium TNP Total Bilirubin 0.70 (0.2-1.0) mg/dL AST TNP ALT 46 (7-52) U/L Alkaline Phosphatase 52 (34-104) U/L Total Creatine Kinase 64 (10-223) U/L CK-MB (CK-2) 1.4 (0.6-6.3) ng/mL Troponin I 0.01 (<0.04) ng/mL B-Natriuretic Peptide ( - 100) pg/mL Total Protein 7.5 (6.4-8.9) g/dL Albumin 4.5 (3.2-5.2) g/dL Globulin 3.0 (2-4) g/dL Albumin/Globulin Ratio 1.5 (1-3) TSH 3.23 (0.34-5.60) mcIU/mL 05/05/17 05/05/17 05/05/17 Range/Units 11:24 11:24 14:29 WBC (3.5-10.8) 10^3/ul RBC (4.0-5.4) 10^6/ul Hgb (14.0-18.0) g/dl Hct (42-52) % MCV (80-94) fL MCH (27-31) pg MCHC (31-36) g/dl RDW (10.5-15) % Plt Count (150-450) 10^3/ul MPV (7.4-10.4) um3 Neut % (Auto) (38-83) % Lymph % (Auto) (25-47) % [place] % (Auto) (1-9) % Eos % (Auto) (0-6) % Baso % (Auto) (0-2) % Absolute Neuts (auto) (1.5-7.7) 10^3/ul Absolute Lymphs (auto) (1.0-4.8) 10^3/ul Absolute Monos (auto) (0-0.8) 10^3/ul Absolute Eos (auto) (0-0.6) 10^3/ul Absolute Basos (auto) (0-0.2) 10^3/ul Absolute Nucleated RBC 10^3/ul Nucleated RBC % INR (Anticoag Therapy) (0.89-1.11) APTT (26.0-36.3) seconds Sodium (133-145) mmol/L Potassium 4.2 Chloride (101-111) mmol/L Carbon Dioxide (22-32) mmol/L Anion Gap (2-11) mmol/L BUN (6-24) mg/dL Creatinine (0.67-1.17) mg/dL Est GFR ( Amer) (>60) Est GFR (Non-Af Amer) (>60) BUN/Creatinine Ratio (8-20) Glucose (70-100) mg/dL Lactic Acid 1.5 (0.5-2.0) mmol/L Calcium (8.6-10.3) mg/dL Magnesium Total Bilirubin (0.2-1.0) mg/dL AST 19 ALT (7-52) U/L Alkaline Phosphatase (34-104) U/L Total Creatine Kinase (10-223) U/L CK-MB (CK-2) (0.6-6.3) ng/mL Troponin I (<0.04) ng/mL B-Natriuretic Peptide 23 ( - 100) pg/mL Total Protein (6.4-8.9) g/dL Albumin (3.2-5.2) g/dL Globulin (2-4) g/dL Albumin/Globulin Ratio (1-3) TSH (0.34-5.60) mcIU/mL 05/05/ Range/Units 15:20 WBC (3.5-10.8) 10^3/ul RBC (4.0-5.4) 10^6/ul Hgb (14.0-18.0) g/dl Hct (42-52) % MCV (80-94) fL MCH (27-31) pg MCHC (31-36) g/dl RDW (10.5-15) % Plt Count (150-450) 10^3/ul MPV (7.4-10.4) um3 Neut % (Auto) (38-83) % Lymph % (Auto) (25-47) % [place] % (Auto) (1-9) % Eos % (Auto) (0-6) % Baso % (Auto) (0-2) % Absolute Neuts (auto) (1.5-7.7) 10^3/ul Absolute Lymphs (auto) (1.0-4.8) 10^3/ul Absolute Monos (auto) (0-0.8) 10^3/ul Absolute Eos (auto) (0-0.6) 10^3/ul Absolute Basos (auto) (0-0.2) 10^3/ul Absolute Nucleated RBC 10^3/ul Nucleated RBC % INR (Anticoag Therapy) (0.89-1.11) APTT (26.0-36.3) seconds Sodium (133-145) mmol/L Potassium Chloride (101-111) mmol/L Carbon Dioxide (22-32) mmol/L Anion Gap (2-11) mmol/L BUN (6-24) mg/dL Creatinine (0.67-1.17) mg/dL Est GFR ( Amer) (>60) Est GFR (Non-Af Amer) (>60) BUN/Creatinine Ratio (8-20) Glucose (70-100) mg/dL Lactic Acid (0.5-2.0) mmol/L Calcium (8.6-10.3) mg/dL Magnesium Total Bilirubin (0.2-1.0) mg/dL AST ALT (7-52) U/L Alkaline Phosphatase (34-104) U/L Total Creatine Kinase (10-223) U/L CK-MB (CK-2) (0.6-6.3) ng/mL Troponin I 0.01 (<0.04) ng/mL B-Natriuretic Peptide ( - 100) pg/mL Total Protein (6.4-8.9) g/dL Albumin (3.2-5.2) g/dL Globulin (2-4) g/dL Albumin/Globulin Ratio (1-3) TSH (0.34-5.60) mcIU/mL Result Diagrams: 05/05/17 11:24 05/05/17 14:29 Lab Statement: Any lab studies that have been ordered have been reviewed, and results considered in the medical decision making process. - Radiology CXR Xray Interpretation: No Acute Changes - Postsurgical changes, no evidence for acute findings. Radiology Interpretation Completed By: Radiologist - CT CHEST/THORAX CT CT Interpretation: No Acute Changes - No evidence of pulmonary embolus is noted. No evidence of aortic dissection or aneurysmal dilatation is present. CT Interpretation Completed By: Radiologist - EKG 1 EKG Rhythm: Sinus Rhythm - @ 67 bpm EKG Interpretation: 11:05 - T wave inversion in V1 to V4. Q waves in III and aVF. EKG Comparison: No Significant Change - From 02/27/17 Chest Pain Course/Dx - Course Assessment/Plan: 36 y/o male presents to ED c/o CP starting 2 hours ago. CP feels like "someone kicked him in the chest" rated at a 9.5/10 now. Associated sx: dizziness, numbness in arm, and SOB. The patient was relaxing while it started. No N/V, diaphoresis. PMHx Marfan's syndrome, DM, 2 LA, large aorta, HLD. SHx triple bypass surgery. Test results show no significant abnormalities except sodium 130. Troponin I 0.01. Trop 2 0.01 4 hrs later. The EKG was at baseline. I did a Chest CT to r/o any intrathoracic pathology, since the pt had a CABG [address] showed No evidence of pulmonary embolus is noted. No evidence of aortic dissection or aneurysmal dilatation is present. Since all of the results were negative and the sx resolved I d/c the patient home with f/ u with her PCP. The patient is hemodynamically stable and A&Ox3. I discussed all the findings and test results with the patient. Patient was instructed to return to the emergency room immediately if any of the symptoms return or worsens. Plan of care was discussed with the patient and understands and agrees. All questions were answered at patient satisfaction. There were no further complaints or concerns. Lung exam before discharge: CTA B/L. Good air exchange. No wheezing or crackles heard. CVS: S1 and S2 present. No murmurs appreciated. Patient is alert and oriented x 3. Patient is hemodynamically stable. Patient will be discharged home with follow up PCP in the next 2-3 days - Diagnoses Provider Diagnoses: Chest pain Discharge - Discharge Plan Condition: Stable Disposition: HOME Patient Education Materials: Chest Pain (ED) Forms: *Work Release Referrals: Rahner,Marshall, MD [Primary Care Provider] - 3 Days (Please f/u in 2-3 days) The documentation as recorded by the Sarah escobar Edward accurately reflects the service I personally performed and the decisions made by , Lee Milton MD.
== END 2017-05-05 16:30 | disposition home or self-care (01) ==
LOC: ED 10:58
DX: R07.9 Chest pain, unspecified (principal); R20.0 Anesthesia of skin; R42 Dizziness and giddiness; R06.02 Shortness of breath
CPT/HCPCS: 36415; 71020; 71275; 80053; 82550; 82553; 83605; 83880; 84443; 84484; 85025; 85610; 85730; 93005; 99283; Q9967

== ENCOUNTER → 2018-10-15 06:03 | Day surgery (SDC) | payer OTHER ==
[~2018-10-15 06:03] MED LIST: Bupivacaine 0.25% SDV PF* 10 ML VIAL INJ ONE; Lidocaine 2% PF * 5 ML VIAL ONE; Mepivacaine 2% MPF (20 MG/ML)* 20 ML MPF ONE; Midazolam* 1 MG/ML 2 ML VIAL (2 MG) ONE; Naloxone* 0.4 MG/ML 1 ML VIAL IV PRN; Propofol* 10 MG/ML 20 ML BTL ONE; ROPIVACAINE 5 MG/ML 30 ML BTL (0.5%) ONE; ceFAZolin 2 GM PREMIX in ORs 2 GM/50 ML BAG IVPB ONE; fentaNYL* 50 MCG/ML 2 ML VIAL (100 MCG VIAL) ONE
[2018-10-15 11:35] VITALS: BP 122/79
--- NOTE | 2018-10-18 18:30 | OP ---
DATE OF OPERATION: 10/15/18 - SDS DATE OF : 78 SURGEON: Ned Shepard MD STRIPPING SHOVEL OILER: TOO Lunsford. An cafeteria assistant was needed for the entirety of the procedure to aid in position of the arm and retraction. ANESTHESIOLOGIST: Dr. Olivares. ANESTHESIA: Peripheral nerve block with MAC. PRE-OP DIAGNOSES: 1. 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 2. Right thumb metacarpophalangeal joint instability. POST-OP DIAGNOSES: 1. 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 2. Right thumb metacarpophalangeal joint instability. OPERATIVE PROCEDURES: 1. Right thumb carpometacarpal arthroplasty with trapeziectomy and thumb suspension via an Arthrex internal brace. 2. Right thumb metacarpophalangeal joint fusion. INDICATIONS: Lavelle has severe basal joint pain and had progressive loss of use of the thumb related to this as well as MP joint instability. He has been seen by his social media marketing manager as he does have cardiology issues related to the Marfan syndrome. He has been cleared for surgery. We talked about risks and benefits, he wanted to proceed. ESTIMATED BLOOD LOSS: 2 mL. COMPLICATIONS: None. FINDINGS: See above and below. DESCRIPTION OF PROCEDURE: Lavelle was seen in the preoperative holding area. The correct site, side, and procedure were identified. After the anesthesiologist had completed her portion of the procedure, we came back to the operating room. The arm was prepped and draped in the usual fashion. A time out was performed. The arm was exsanguinated with the Esmarch and the tourniquet was inflated to 250 mmHg. I made a 2 cm longitudinal incision over the dorsal radial aspect of the wrist overlying the trapezium. Dissection was carried down longitudinally to preserve the traversing sensory nerves. The radial artery was dissected free and mobilized out of the way. The carpometacarpal joint and subperiosteal flaps were raised to expose the entirety of dysmorphic trapezium. This took much longer than normal given the Marfan syndrome and the dysmorphism of the bone and the joints related to that. The soft tissue was freed up all around the trapezium, and once I had freed that up, I excised the trapezium in its entirety with a Rongeur in piecemeal fashion taking care to preserve the adjacent scaphotrapezoid joint and all the other mcmahon structures. The scaphotrapezoid joint was examined and the articular surface there was okay. The wound was then irrigated out, everything was looking good. I used to guidewire for the Arthrex internal brace and placed that in the base of the second metacarpal. The wire was then overdrilled and the suture anchor was placed to secure the SutureTape to the base of the second metacarpal. I then placed the guidewire in the dorsal radial aspect of the articular surface at the base of the metacarpal. The wire was then overdrilled and the suture anchor was placed securing the SutureTape. Things were tightened down with thumb adducted against the index finger and without traction. After the internal brace was secured, I checked and there was no thumb subsidence. I could not oppose the base of the thumb to the scaphoid throughout a full arc of motion at the basal joint. I was very pleased with this, so we irrigated out the wound. The capsular flaps were closed 3-0 Vicryl suture. The radial artery was preserved throughout the procedure. The skin was closed with 4-0 nylon suture. I then made a longitudinal incision over the dorsum of the metacarpophalangeal joint. Dissection was carried down. The extensor davila was split and the tendon was from the capsule to the extent possible as it was quite adherent to expose the MCP joint. The collateral ligament were released. The proximal phalanx was flexed down to expose the metacarpal head. The guidewire for the Acumed metacarpophalangeal joint reamers was placed and the #14 reamer was used to remove the subchondral bone and back to nice bed of cancellous bone. I then exposed the proximal phalanx and placed the guidewire and used the corresponding Acumed reamer to prepare the base of the proximal phalanx. Any edges around reamer where I reamed were removed with a Rongeur, so that there was nothing to prevent nice apposition. I then placed the MP joint in the position that I wanted, and I placed the guidewire for the skeletal dynamics , had this compression screw. This was begun in the dorsal aspect of the metacarpal and taken out down to the subchondral bone of the proximal phalanx. I measured and selected out the longest screw, which was 30 mm 3.5 mm screw. I then drilled and had this compression screw in standard fashion. This provided excellent compression and apposition across the fusion site. At this point, I packed a little local bone graft around the fusion site. Everything was looking good, so I irrigated out the wound. The capsule was closed with 5-0 Prolene suture. The longitudinal split and tendon was repaired with 4-0 Prolene suture. The skin was closed with 4-0 nylon suture. No additional local anesthetic was used due to the block. The wounds were dressed a thumb spica splint at the tip of the thumb applied. Tourniquet was deflated. The hand pinked up immediately. He was taken to the recovery room in stable condition. [id number]/CPS #: [id number] MTDD
== END | disposition home or self-care (01) ==
LOC: OR 06:03
PROVIDERS: ATTEND Orthopaedic Surgery Hand Surgery
DX: M18.0 Bilateral primary osteoarthritis of first carpometacarpal joints (principal); Q87.40 Marfan syndrome, unspecified; I25.10 Atherosclerotic heart disease of native coronary artery without angina pectoris; M25.341 Other instability, right hand; I25.2 Old myocardial infarction; Z95.1 Presence of aortocoronary bypass graft; G89.18 Other acute postprocedural pain; Z95.2 Presence of prosthetic heart valve; D64.9 Anemia, unspecified; E11.9 Type 2 diabetes mellitus without complications; Z79.4 Long term (current) use of insulin; Z79.84 Long term (current) use of oral hypoglycemic drugs; F33.9 Major depressive disorder, recurrent, unspecified; I10 Essential (primary) hypertension; E78.5 Hyperlipidemia, unspecified; F41.8 Other specified anxiety disorders
CPT/HCPCS: 76001; 88304; 88311; C1713; J0670; J0690; J2250; J2704; J2795; J3010; J3490